=== PATIENT | male | born 1985 ===

== ENCOUNTER 2020-06-21 14:12 | Outpatient (CLI) | payer OTHER | END 2020-06-21 15:09 | disposition home or self-care (01) | LOC: OFIC 805 14:12 | PROVIDERS: ATTEND Otolaryngology Otology & Neurotology | DX: J30.89 Other allergic rhinitis (principal); R04.0 Epistaxis; R43.0 Anosmia ==

== ENCOUNTER 2020-06-29 13:48 | Outpatient (CLI) | payer OTHER | END 2020-06-29 14:46 | disposition home or self-care (01) | LOC: OFIC 805 13:48 | PROVIDERS: ATTEND Otolaryngology Otology & Neurotology | DX: J30.89 Other allergic rhinitis (principal); R04.0 Epistaxis; R43.0 Anosmia ==